=== PATIENT | male | born 1945 | race Caucasian/White ===

== ENCOUNTER → 2023-09-01 15:33 | Outpatient (REF) | payer MEDICARE, OTHER, SELFPAY | LOC: PAVMRI 15:33 | PROVIDERS: ATTENDING PHYSICIAN Family Medicine | DX: Q04.8 Other specified congenital malformations of brain (principal); Q28.3 Other malformations of cerebral vessels | CPT/HCPCS: 70544 ==

== ENCOUNTER → 2024-03-28 15:07 | Outpatient (REF) | payer MEDICARE, OTHER, SELFPAY | LOC: PAVMRI 15:07 | PROVIDERS: ATTENDING PHYSICIAN Psychiatry & Neurology Psychiatry; FAMILY PHYSICIAN Family Medicine | DX: I69.811 Memory deficit following other cerebrovascular disease (principal); Z86.73 Personal history of transient ischemic attack (TIA), and cerebral infarction without residual deficits | CPT/HCPCS: 70553; A9575 ==

== ENCOUNTER → 2024-05-31 12:00 | Outpatient (REF) | payer MEDICARE, OTHER, SELFPAY | LOC: DHSLP 12:00 | PROVIDERS: ATTENDING PHYSICIAN Internal Medicine; FAMILY PHYSICIAN Family Medicine | DX: G47.33 Obstructive sleep apnea (adult) (pediatric) (principal) | CPT/HCPCS: 95800 ==

== ENCOUNTER 2025-05-31 12:47 | Emergency (ER) | payer MEDICARE, OTHER, SELFPAY ==
[2025-05-31 13:04] VITALS: BP 142/71
--- NOTE | 2025-05-31 15:25 | ED.GENMED ---
History of Present Illness
General
Chief Complaint: Anal/Rectal Problem
Source: patient
Exam Limitations: none
Time Seen by Provider: 05/31/25 14:28
Nursing documentation reviewed up to this point in time: agreed with
History of Present Illness
History of Present Illness:
79-year-old male presenting to the emergency department today with concerns of rectal discomfort that occurred a few hours prior to arrival. He had a bowel movement at arrival here and now feels much better and is now asymptomatic. No nausea
vomiting chest pain shortness of breath no blood in the stool does have a history of hemorrhoids.
Review of Systems
Review of Systems
Allergies reviewed?: Yes
All Other Systems: ROS reviewed and negative except as documented in HPI and ROS
Phy Exam
Physical Exam
Physical Exam:
GENERAL: Alert , in no apparent distress
EYE: pupils equal and reactive
NECK: Supple, no significant adenopathy.
ENT: o/p clr, mmm.
CARDIAC: Regular rate and rhythm .
LUNGS: Clear breath sounds bilaterally, no acute respiratory distress, no wheezes/rales/rhonchi
ABDOMEN: Rectal examination without any significant hemorrhoids no fecal impaction, soft, without focal tenderness, no r/g, no cvat
NEUROLOGICAL: Alert and oriented, no focal neuro deficits
SKIN: Warm and dry, skin intact.
MUSCULOSKELETAL: No edema, well perfused.
PSYCH: Normal and appropriate interaction.
Course
Vital Signs
Initial and Last Documented VS:
Initial Vital Signs
Temp Pulse Resp BP Pulse Ox
97.9 F 53 18 142/71 97
05/31/25 13:04 05/31/25 13:04 05/31/25 13:04 05/31/25 13:04 05/31/25 13:04
Last Documented Vital Signs
Temp Pulse Resp BP Pulse Ox
97.9 F 53 18 142/71 97
05/31/25 13:04 05/31/25 13:04 05/31/25 13:04 05/31/25 13:04 05/31/25 13:04
MDM/Problems Addressed
MDM/Problems Addressed:
79-year-old male presenting to the emergency department with concerns of rectal pain. He claims to be asymptomatic after a large bowel movement. No concerning features on rectal examination. I feel the patient likely had a fecal impaction that is
now resolved. Stable for discharge. Return precautions given.
*Pulse Oximetry
SaO2: 97
Oxygen Mode of Delivery: Room air
Patient hypoxic: no (97)
*Critical Care Note
Total Time (30-74mins, 75-104mins- exclusive of procedures): Not Applicable
ED Attending Note
-
Portions of this chart may have been created with voice recognition software.� Occasional wrong word or��sound alike� substitutions may have occurred due to the inherent limitations of voice recognition software.
Discharge Plan
Departure
Patient Disposition: Home (Routine Discharge)
Date of Disposition: 05/31/25
Time of Disposition: 15:30
Patient with high blood pressure during this ER visit?: No
Condition: Good
Covid-19: Not Applicable
Discharge Problem:
Fecal impaction
Instructions: Fecal Impaction (DC)
Prescriptions:
New
polyethylene glycol 3350 [Miralax] 17 gram/dose powder
4 g PO DAILY Qty: 119 0RF
docusate sodium [Colace] 100 mg capsule
100 mg PO DAILY Qty: 14 0RF
Referrals:
Gera Morrison MD [Family Provider, Family Practice]
Activity Restrictions/Additional Instructions:
You came to the emergency department today with concerns of rectal pain. This could be from a fecal impaction. Please take the prescribed stool softeners and stay hydrated. Return for any worsening, new or concerning symptoms.
Interventions
Interventions:
*Neglect/Abuse Screening Last Done: 05/31/25 15:19
*ED COVID-19 Vaccine History Last Done: 05/31/25 15:19
*Risk Screen - Suicide (C-SSRS) Last Done: 05/31/25 15:19
Discharge Date and Time
Print Language: [place]
[2025-05-31 15:28] VITALS: BMI 26.8
[2025-05-31 15:31] VITALS: BP 157/73
== END 2025-05-31 16:00 | disposition home or self-care (01) ==
LOC: EMR 12:47
PROVIDERS: EMERGENCY PHYSICIAN Student in an Organized Health Care Education/Training Program; FAMILY PHYSICIAN Family Medicine
DX: K56.41 Fecal impaction (principal)
CPT/HCPCS: 99283